=== PATIENT | female | born 1995 ===

== ENCOUNTER 2023-08-06 10:11 | Outpatient (REF) | payer MEDICAID, SELFPAY ==
[2023-08-06 11:46] LABS: Hematocrit 46.2 % (37.0-47.0); Hemoglobin 14.7 g/dl (12.0-16.0)
[2023-08-06 13:35] LABS: Alanine Aminotransferase 18 U/L (0-31); Aspartate Amino Transferase 12 U/L (5-31)
[2023-08-10 13:23] LABS: Testosterone, Total 231 ng/dL (2-45)
== END 2023-08-06 10:12 | disposition home or self-care (01) ==
LOC: HO.HHCL 10:11
PROVIDERS: Visit Provider Advanced Practice Midwife
DX: F64.9 Gender identity disorder, unspecified (principal); Z79.899 Other long term (current) drug therapy
CPT/HCPCS: 36415; 84403; 84450; 84460; 85014; 85018